=== PATIENT | male | born 1960 | race Two or more races ===

== ENCOUNTER 2021-06-15 16:21 | Outpatient (CLI) | payer OTHER, SELFPAY ==
[2021-06-15 17:39] LABS: AST(SGOT) 42 U/L (15-37); Alanine Aminotransfer ALT/SGPT 67 U/L (16-61); Alkaline Phosphatase 108 U/L (45-117); Bilirubin, Direct 0.16 mg/dL (0.00-0.30); Cholesterol 113 mg/dL (200); Globulin 3.3 g/dL (2.2-4.2); High Density Lipoprotein 35 mg/dL; Protein, Total 7.3 g/dL (6.4-8.2); Triglycerides 410 mg/dL
== END 2021-06-15 23:59 | disposition home or self-care (01) ==
LOC: LAB 16:22
PROVIDERS: PCP Family Medicine; Visit Provider Internal Medicine Cardiovascular Disease
DX: E78.2 Mixed hyperlipidemia (principal); Z95.5 Presence of coronary angioplasty implant and graft; I10 Essential (primary) hypertension
CPT/HCPCS: 36415; 80061; 80076

== ENCOUNTER 2021-10-20 06:52 | Outpatient (CLI) | payer OTHER, SELFPAY ==
--- NOTE | 2021-10-20 07:03 | ECHOD_ITS ---
Reason For Study: CAD/ASHD Left Ventricle Normal LV size. Left ventricular systolic function is normal. The estimated ejection fraction is 60 %. Stage 1 diastolic dysfunction. No regional wall motion abnormalities noted. Right Ventricle Normal RV size. Normal systolic function. Atria Normal left atrium. Normal right atrium. Mitral Valve Normal mitral valve. Tricuspid Valve Normal tricuspid valve. Aortic Valve Normal aortic valve. Trisinus/trileaflet aortic valve. Pulmonic Valve Normal pulmonic valve. Great Vessels Normal aortic root. The pulmonary artery is normal size. Inferior vena cava collapse with respiration. Pericardium/Pleural No pericardial effusion. MMode/2D Measurements & Calculations LVIDd: 4.8 cm IVSd: 0.94 cm Ao root diam: 3.3 cm LVIDs: 3.2 cm LVPWd: 0.92 cm LA dimension: 4.4 cm RVDd: 4.1 cm FS: 33.9 % LAV(MOD-bp): 46.5 ml LA A4 area: 17.4 cm2 RA A4 area: 13.1 cm2 LAV(MOD-bp) Indexed: 23.9 ml/m2 LAV(MOD-sp2): 47.5 ml LAV(MOD-sp4): 45.3 ml Time Measurements MV dec time: 0.19 sec Doppler Measurements & Calculations MV E max kirlil: 77.4 cm/sec MV V2 max: 92.3 cm/sec MV P1/2t max kirill: 67.3 cm/sec MV A max kirill: 91.6 cm/sec MV max P.4 mmHg MV P1/2t: 55.1 msec MV E/A: 0.84 MV V2 mean: 49.5 cm/sec MV mean P.1 mmHg MV dec slope: 357.7 cm/sec2 MV V2 VTI: 22.7 cm MVA(P1/2t): 4.0 cm2 Ao V2 max: 116.6 cm/sec LV V1 max: 102.1 cm/sec PA V2 max: 125.5 cm/sec Ao max P.4 mmHg LV V1 max P.2 mmHg Ao V2 mean: 77.3 cm/sec LV V1 mean P.2 mmHg Ao mean P.8 mmHg LV V1 mean: 68.2 cm/sec Ao V2 VTI: 23.3 cm LV V1 VTI: 22.8 cm ECHO/Echo Complete Interpretation Summary Normal LV size. Left ventricular systolic function is normal. The estimated ejection fraction is 60 %. Stage 1 diastolic dysfunction. Structurally normal valves. Ordering Physician: Bryan Pena Referring Physician: Bebo Chaudhary Performed By: Taqueria Lewis RCS
[2021-10-20 08:00] LABS: AST(SGOT) 25 U/L (15-37); Alanine Aminotransfer ALT/SGPT 41 U/L (16-61); Albumin, Serum 3.8 g/dL (3.2-5.0); Alkaline Phosphatase 75 U/L (45-117); Bilirubin, Direct 0.14 mg/dL (0.00-0.30); Cholesterol 118 mg/dL (200); Globulin 2.9 g/dL (2.2-4.2); High Density Lipoprotein 31 mg/dL; Protein, Total 6.7 g/dL (6.4-8.2); Triglycerides 418 mg/dL
--- NOTE | 2021-10-20 16:42 | STRESSREP_ITS ---
Stress Test Report Exercise myocardial perfusion stress test. 61-year-old man with a history of chest pain. Stress protocol: Resting EKG demonstrates normal sinus rhythm with a rate of 68 bpm normal intervals are noted resting blood pressure is 140/82 mmHg. The patient exercised according to the regular Bret protocol for total duration of 8 minutes. The maximum heart rate attained was 144 bpm which was 90% of max impacted heart rate the maximum workload was 10.1 metabolic equivalents. At rest there were no ST or T wave changes noted suggest ischemia and at peak exercise upsloping ST changes were noted with did not meet the criteria for ischemia. The test was terminated due to target heart rate being achieved. There was mild to moderate shortness of breath noted. The peak blood pressure was 184/70 mmHg. Myocardial perfusion protocol. 14.1 mCi of technetium 99m sestamibi was injected at rest. The patient exercised according to regular Bret protocol and at peak exercise 44.3 mCi of technetium 99m sestamibi was injected stress images were obtained stress and rest images were reconstructed in comparing the short axis vertical long and hor izontal long axis. Gated images were also obtained to Perfusion SPECT analysis: Review of the stress images demonstrate normal uptake of tracer noted in all areas of the myocardium. The resting images similarly demonstrate normal uptake of tracer noted in all areas of the myocardium. No areas of reversibility are noted suggest ischemia no previous infarct is noted. Gated SPECT analysis: The gated ejection fraction is 63%. Conclusion: Normal exercise myocardial perfusion stress test at a high workload. Preserved ejection fraction.
== END 2021-10-20 23:59 | disposition home or self-care (01) ==
PROVIDERS: PCP Family Medicine; Referring Provider Internal Medicine Cardiovascular Disease; Visit Provider Internal Medicine Cardiovascular Disease
DX: E78.00 Pure hypercholesterolemia, unspecified (principal); Z95.5 Presence of coronary angioplasty implant and graft; R07.9 Chest pain, unspecified
CPT/HCPCS: 36415; 78452; 80061; 80076; 93017; 93306; A9500; A4216

== ENCOUNTER → 2022-01-17 | Outpatient (CLI) | payer OTHER, SELFPAY ==
[2022-01-17 11:04] LABS: AST(SGOT) 34 U/L (15-37); Alanine Aminotransfer ALT/SGPT 59 U/L (16-61); Alkaline Phosphatase 56 U/L (45-117); Bilirubin, Direct 0.12 mg/dL (0.00-0.30); Cholesterol 105 mg/dL (200); Globulin 2.9 g/dL (2.2-4.2); High Density Lipoprotein 34 mg/dL; Protein, Total 6.9 g/dL (6.4-8.2); Triglycerides 97 mg/dL; Very Low Density Lipoprotein 19 mg/dL (5-40)
== END | disposition home or self-care (01) ==
LOC: LAB 10:09
PROVIDERS: PCP Family Medicine; Visit Provider Internal Medicine Cardiovascular Disease
DX: E78.00 Pure hypercholesterolemia, unspecified (principal)
CPT/HCPCS: 36415; 80061; 80076